=== PATIENT | female | born 1980 | race African-American/Black ===

== ENCOUNTER → 2018-03-25 09:58 | Outpatient (CLI) | payer BC ==
[2014-03-28 16:39] VITALS: BMI 23.6
[~2018-03-25 09:58] MED LIST: ELAVIL25 MG PO; EZFE 200200 MG PO; IBUPROFEN600 MG PO; PERCOCET 5-3251 TAB PO; ZOLOFT50 MG PO
== END | disposition home or self-care (01) ==
LOC: D.MRI 09:58
DX: M54.5 Low back pain (principal)

== ENCOUNTER 2018-05-17 20:44 | Emergency (ER) | payer SELFPAY ==
[~2018-05-17] VITALS: Ht 154.9 cm; Wt 59.1 kg
[2018-05-17 21:23] VITALS: Ht 154.9 cm; Wt 59.1 kg
[2018-05-17 23:01] LABS: APPEARANCE CLEAR (CLEAR); BILIRUBIN 1+ (NEGATIVE); COLOR YELLOW (YELLOW); GLUCOSE NEGATIVE (NEGATIVE); KETONE NEGATIVE (NEGATIVE); NITRITE NEGATIVE (NEGATIVE); PROTEIN NEGATIVE (NEGATIVE); SPECIFIC GRAVITY 1.015 (1.005-1.020); UROBILINOGEN NORMAL (NORMAL)
[2018-05-17 23:04] LABS: HCG URINE NEGATIVE (NEGATIVE)
[2018-05-17] MEDS ORDERED: BACLOFEN20 M1 PO (23:31)
[2018-05-17] MEDS ORDERED: VOLTAREN75 MG PO (23:31)
[2018-05-17 23:54] VITALS: BP 122/71
== END 2018-05-18 00:28 | disposition home or self-care (01) ==
LOC: D.ER 20:44
PROVIDERS: Emergency Medicine
DX: M54.32 Sciatica, left side (principal); F17.200 Nicotine dependence, unspecified, uncomplicated

== ENCOUNTER 2020-09-01 14:50 | Outpatient (CLI) | payer BC ==
[2018-05-17 21:23] VITALS: BMI 24.6
[~2020-09-01 14:50] MED LIST changes: +BACLOFEN20 M1 PO; +VOLTAREN75 MG PO
== END 2020-09-01 23:59 | disposition home or self-care (01) ==
LOC: D.MAMMO 14:50
PROVIDERS: ATTEND Obstetrics & Gynecology
DX: Z12.31 Encounter for screening mammogram for malignant neoplasm of breast (principal); Z01.419 Encounter for gynecological examination (general) (routine) without abnormal findings